=== PATIENT | male | born 1990 | race Caucasian/White ===

== ENCOUNTER 2019-12-14 16:56 | Emergency (ER) | payer SELFPAY ==
[~2019-12-14] VITALS: Ht 175.3 cm; Wt 95.3 kg
[2019-12-14 16:58] VITALS: BP 130/75
--- NOTE | 2019-12-14 17:05 | NUR ---
[place] [facility] AT BEDSIDE
--- NOTE | 2019-12-14 17:26 | NUR ---
XRAY AT BEDSIDE
--- NOTE | 2019-12-14 17:28 | NUR ---
PT AMBULATED OUT OF THE ER WITH STEADY GAIT---
== END 2019-12-14 17:28 | disposition left against medical advice (07) ==
LOC: MED 16:56
DX: S20.212A Contusion of left front wall of thorax, initial encounter (principal); I51.89 Other ill-defined heart diseases; X58.XXXA Exposure to other specified factors, initial encounter; Y93.89 Activity, other specified; Y92.89 Other specified places as the place of occurrence of the external cause; Y99.8 Other external cause status
CPT/HCPCS: 71045; 93005; 99283; Q0092